=== PATIENT | male | born 1995 | race Caucasian/White ===

== ENCOUNTER 2016-11-15 20:43 | Emergency (ER) | payer OTHER ==
--- NOTE | 2016-11-15 21:29 | ED ORDER SUMMARY ---
..... Patient: JANN HAYDEN OrderSheet [facility] VisitID: [id number] [address] [place] [place] [address] 21y, M Registration Date/Time: 11/15/2016 ORDER SHEET Weight: 92.9 kg (stated) Allergies: NICKEL GENERAL ORDERS: Dress Wounds (21:25 11/15/2016 Shannan A.R.N.P.) (22:03 Tara Farris.N.) MEDICATION ORDERS: IV FLUIDS: ORDER SHEET NOTES: [Electronically signed by Jair Christianson R.N. (22:04 11/15/2016)] [Electronically signed by Antonieta DockeryRVanessaN.PVanessa (22:22 11/15/2016)] [Electronically locked/signed by Jair Christianson R.N. (22:04 11/15/2016)]
--- NOTE | 2016-11-15 21:29 | ED CLINICAL REPORT ---
Clinical Report - Physicians/Mid Levels [facility] [address] [place] [address] 11/15/2016 20:44 Patient: JANN HAYDEN Time Seen: 21:10; initial patient contact, initial documentation, patient care assumed. Arrived- By private vehicle. Historian- patient. HISTORY OF PRESENT ILLNESS Chief Complaint: Injury to the right hand. The injury happened just prior to arrival. Occurred at work. The patient sustained a laceration from a sharp edge (piece of metal while trimming a bolt). Patient is experiencing mild pain. Patient denies injury to the head or neck. No other injury. REVIEW OF SYSTEMS The patient sustained a laceration. No swelling, tingling, numbness or weakness. All systems otherwise negative, except as recorded above. PAST HISTORY See nurses notes. PROBLEMS: Anxiety Reaction. Depression. --21:37 Caden Kim R.N. The patient's dominant hand is the right. Tetanus immunization status is up-to-date. SOCIAL HISTORY Never smoker. Occasional alcohol use. No drug use. No recent travel. Is a local resident. FAMILY HISTORY No significant family medical history. ADDITIONAL NOTES The nursing notes have been reviewed with agreement regarding the chief complaint, HPI, ROS and patient medications and allergies. PHYSICAL EXAM Vital Signs: 11/15/2016 21:46 BP: 131/85. HR: 97. RR: 16. O2 saturation: 97%. Temp: 98.6 F. Pain level now: 0/10. Have been reviewed as normal and appear to be correct. Appearance: Alert. Oriented X3. No acute distress. Head: Head atraumatic. Eyes: Pupils equal, round and reactive to light. Eyes normal inspection. Respiratory: No respiratory distress. Skin: Skin warm and dry. Skin intact. Extremities: Hand injury present. Dorsal right hand: superficial 1.0 cm laceration of the distal aspect of the dorsal hand. Neurovascular intact distally. (1cm superficial lac with no active bleeding to top of handing near knuckle between digits 4 &5, no closure needed). No erythema, tenderness, swelling, abrasion or ecchymosis. No puncture wound, foreign body or deformity. No limitation of extension. No wrist injury. Hand and wrist exam otherwise negative. Extremities otherwise negative. Neuro, Vascular and Tendons: Vascular status intact. Sensation intact. Motor intact. Tendon function intact. Neuro: Oriented X 3. No motor deficit. No sensory deficit. Note: isolated injury to hand. PROGRESS AND PROCEDURES Course of Care: L&I paperwork completed. Patient counseled in person regarding the patient's stable condition and diagnosis. Differential Diagnosis: Other possible considerations: hand lac, fb, skin avulsion, tendon injury. Above considerations are based on history. Differential diagnosis was discussed with patient. Disposition: Discharged home in good and improved condition (21:29). Condition: good and stable. CLINICAL IMPRESSION Single superficial laceration to the right hand.Treatment of laceration not delayed. No infection or foreign body present. INSTRUCTIONS Protect wound and keep wound area clean. Soak in warm soapy water twice daily. Apply bacitracin twice daily. Follow-up: Follow up with your doctor in about three days as needed and for wound check. Call for an appointment. Summary of care provided to patient. Understanding of the discharge instructions verbalized by patient. (Electronically signed by Antonieta Dockery A.R.N.P. 11/15/2016 22:22)
--- NOTE | 2016-11-15 21:29 | ED ORDER SUMMARY ---
..... Patient: JANN HAYDEN OrderSheet [facility] VisitID: [id number] [address] [place] [address] 21y, M Registration Date/Time: 11/15/2016 ORDER SHEET Weight: 92.9 kg (stated) Allergies: NICKEL GENERAL ORDERS: Dress Wounds (21:25 11/15/2016 Shannan A.R.N.P.) (22:03 Tara Farris.N.) MEDICATION ORDERS: IV FLUIDS: ORDER SHEET NOTES: [Electronically signed by Jair Christianson R.N. (22:04 11/15/2016)] [Electronically signed by Antonieta DockeryRVanessaN.PVanessa (22:22 11/15/2016)] [Electronically locked/signed by Jair Christianson R.N. (22:04 11/15/2016)]
--- NOTE | 2016-11-15 22:22 | ED DISCHARGE INSTRUCTIONS ---
Patient: JANN HAYDEN General Instructions [facility] VisitID: [id number] [place] [address] 21y, M Registration Date/Time: 11/15/2016 Single superficial laceration to the right hand.Treatment of laceration not delayed. No infection or foreign body present. INSTRUCTIONS Protect wound and keep wound area clean. Soak in warm soapy water twice daily. Apply bacitracin twice daily. Follow-up: Follow up with your doctor in about three days as needed and for wound check. Call for an appointment. Summary of care provided to patient. Understanding of the discharge instructions verbalized by patient. ADDITIONAL INFORMATION Laceration (All Closures) Alaceration is a cut through the skin. This will usually require stitches (sutures) or srini if it is deep. Minor cuts may be treated with a surgical tape closure orskin glue. Home care The following guidelines will help you care for your laceration at home: Extremity, face, or trunk wounds Keep the wound clean and dry. If a bandage was applied and it becomes wet or dirty, replace it. Otherwise, leave it in place for the first 24 hours. If stitches or srini were used, clean the wound daily. After removing the bandage, wash the area with soap and water. Use a wet cotton swab to loosen and remove any blood or crust that forms. The doctor may prescribe an antibiotic cream or ointment to prevent infection. Do not stop taking this medication until you have finished the prescribed course or the doctor tells you to stop. The doctor may also prescribe medications for pain. Follow the doctors instructions for taking these medications. You may remove the bandage to shower as usual after the first 24 hours, but do not soak the area in water (no swimming) until the stitches or srini are removed. If surgical tape was used, keep the area clean and dry. If it becomes wet, blot it dry with a towel. If skin glue was used, do not scratch, rub, or pick at the adhesive film. Do not place tape directly over the film. Do not apply liquid, ointment, or creams to the wound while the film is in place. Do not clean the wound with peroxide and do not apply ointments. Avoid activities that cause heavy sweating until the film has fallen off. Protect the wound from prolonged exposure to sunlight or tanning lamps. You may shower as usual but do not soak the wound in water (no baths or swimming). The film will fall off by itself in 510 days. Scalp wounds During the first two days, you may carefully rinse your hair in the shower to remove blood, glass or dirt particles. After two days, you may shower and shampoo your hair normally. Do not soak your scalp in the tub or go swimming until the stitches or srini have been removed. Talk with your doctor before applying any antibiotic ointment to the wound. Mouth wounds Eat soft foods to reduce pain. If the cut is inside of your mouth, clean by rinsing after each meal and at bedtime with a mixture of equal parts water and hydrogen peroxide (do not swallow!). Or, you can use a cotton swab to directly apply hydrogen peroxide onto the cut. Mouth wounds can be painful when eating. You may use an [id number] local numbing solution for pain relief. If this is not available, you may use any numbing solution for teething babies. You may apply this directly to the sores with a cotton-tip swab or with your finger. Follow-up care Follow up with your health care provider. Most skin wounds heal within ten days. Mouth and facial wounds heal within five days. However, even with proper treatment, a wound infection may sometimes occur. Therefore, you should check the wound daily for signs of infection listed below. Stitches should be removed from the face within five days; stitches and srini should be removed from other parts of the body within 714 days. If dissolving stitches were used in the mouth, these will fall out or dissolve without the need for removal. If tape closures were used, remove them yourself if they have not fallen off after 7 days. Ifskin glue was used, the film will fall off by itself in 510 days. When to seek medical care Get prompt medical attention if any of these occur: Bleeding not controlled by direct pressure Signs of infection, including increasing pain in the wound, increasing wound redness or swelling, or pus coming from the wound Fever of 100.4F (38C) or higher, or as directed by your health care provider Stitches or srini come apart or fall out or surgical tape falls off before 7 days Wound edges re-open Laceration, Extremity (Sutures, Srini, Or Tape) A laceration is a cut through the skin. This will usually require stitches (sutures) or srini if it is deep. Minor cuts may be treated with surgical tape closures. Home care The following guidelines will help you care for your laceration at home: Keep the wound clean and dry. If a bandage was applied and it becomes wet or dirty, replace it. Otherwise, leave it in place for the first 24 hours, then change it once a day or as directed. If stitches or srini were used, clean the wound daily: After removing the bandage, wash the area with soap and water. Use a wet cotton swab to loosen and remove any blood or crust that forms. After cleaning, keep the wound clean and dry. Talk with your doctor before applying any antibiotic ointment to the wound. Reapply the bandage. You may remove the bandage to shower as usual after the first 24 hours, but do not soak the area in water (no swimming) until the stitches or srini are removed. If surgical tape closures were used, keep the area clean and dry. If it becomes wet, blot it dry with a towel. The doctor may prescribe an antibiotic cream or ointment to prevent infection. Do not stop taking this medication until you have finished the prescribed course or the doctor tells you to stop. The doctor may also prescribe medications for pain. Follow the doctors instructions for taking these medications. If you have chronic liver or kidney disease or ever had a stomach ulcer or GI bleeding, talk with your doctor before using these medicines. Follow-up care Follow up with your health care provider. Most skin wounds heal within ten days. However, an infection may sometimes occur despite proper treatment. Therefore, check the wound daily for the signs of infection listed below. Stitches and srini should be removed within 714 days. If surgical tape closures were used, you may remove them after 10 days, if they have not fallen off by then. Notify your doctor if you notice persistent numbness or weakness in the injured extremity. (Note:A radiologist will review any X-rays that were taken. We will notify you of any new findings that may affect your care.) When to seek medical care Get prompt medical attention if any of these occur: Increasing pain in the wound Redness, swelling, or pus coming from the wound Fever of 100.4F (38C) or higher, or as directed by your health care provider If stitches or srini come apart or fall out before your next appointment If the surgical tape closures fall off within seven days, or the wound edges re-open Bleeding not controlled by direct pressure You have been given the following additional information: Laceration, All Laceration, Extrem (Suture, Staple, Or Tape) (Electronically signed by Antonieta Dockery A.R.N.P. 11/15/2016 22:22)
--- NOTE | 2016-11-15 22:22 | ED NURSING NOTES ---
Clinical Report - Nurses [facility] [place] [address] 11/15/2016 20:44 Patient: JANN HAYDEN TRIAGE Triage time 21:30 Nov 15 2016. Acuity: LEVEL 5. Chief Complaint: Location of symptoms- (R hand lac, between 4th and 5th metacarpals.). SEPSIS SCREEN: Sepsis Screen. Negative (no infection suspected/documented). --21:34 Jair Christianson R.N. 21:46 11/15/16. BP: 131/85. HR: 97. RR: 16. O2 saturation: 97% on room air. Temp: 98.6 F. Pain level now: 0/10. --21:46 Jair Christianson R.N. Weight: 92.9 kg stated. Height/Length: 71 inches Per Patient. BMI: 28.6. --21:29 Jair Christianson R.N. Medications Omeprazole Oral. --21:32 Jair Christianson R.N. SEROquel Oral. --21:32 Jair Christianson R.N. Cymbalta Oral. --21:32 Jair Christianson R.N. Allergies NICKEL. --21:31 Jair Christianson R.N. History Arrived by private vehicle. Historian: patient. Primary physician (Dr. Andrew Farias @ [facility] This occurred today. 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 PAST MEDICAL HX: Tetanus status: up-to-date. Immunizations: up-to-date. SURGERY HX: ( R wrist ORIF). SOCIAL HX: Never smoker. Occasional alcohol use. No drug use. No infectious disease exposure. FALL RISK ASSESSMENT: Fall risk assessment completed. No fall risk identified. NUTRITIONAL RISK ASSESSMENT: The nutritional risk assessment revealed no deficiencies. FUNCTIONAL ASSESSMENT: Functional assessment: no impairments noted. LEARNING NEEDS ASSESSMENT: The learning needs assessment revealed no barriers. SKIN INTEGRITY ASSESSMENT: Skin integrity risk assessment completed. No skin integrity risk identified. --21:34 Jair Christianson R.N. PROBLEMS: Suicidal Ideation. Suicide Attempt. Anxiety Reaction. Depression. --21:33 Jair Christianson R.N. ADDITIONAL SURGERIES: R wrist fracture. --21:32 Jair Christianson R.N. Interventions ID and allergy band on patient. --21:34 Jair Christianson R.N. PHYSICAL ASSESSMENT GENERAL / NEURO / PSYCH: Oriented X 4. Alert. Appears in no acute distress. EXTREMITIES: Dorsal right hand: laceration with controlled bleeding. SKIN: Skin is warm and dry. --21:35 Jair Christianson R.N. NURSING PROGRESS NOTES The plan of care for this patient has been created. Reassurance given. Two patient identifiers checked. Call light placed in reach. Bed placed in lowest position. Patient ready for evaluation- COLLECTIONS PROFESSIONAL notified. ( Pt calm, resting in room, VSS, wounds dressed, ready for DC.). --21:35 Jair Christianson R.N. DISPOSITION / DISCHARGE Condition at departure: improved and stable. The goals identified in the patient's plan of care were met. No learning barriers present. Discharge instructions provided and reviewed with the patient. Reviewed referral to a primary care physician for followup. Patient verbalized understanding. Written instructions provided in Nepalese. The patient was discharged by the nurse practitioner. He was discharged home. He left the Emergency Department ambulatory and via private vehicle. Patient driving. ( Pt dc'd in stable condition, VSS, afebrile, verbalized POC.). --22:02 Jair Christianson R.N. 22:02 11/15/16. BP: 131/89. HR: 99. RR: 16. O2 saturation: 95% on room air. Temp: 98 F. Pain level now: 09/15. --22:03 Jair Christianson R.N. Departure time: 22:03 Nov 15 2016. --22:03 Jair Christianson R.N. Locked/Released at 11/15/2016 22:04 by Jair Christianson R.N.
--- NOTE | 2016-11-15 22:22 | ED MED RECONCILIATION SUMMARY ---
Patient: JANN HAYDEN Medication Reconciliation Report [facility] VisitID: [id number] [address] [place] [address] 21y, M Registration Date/Time: 11/15/2016 Weight: 92.9 kg Height/Length: 71 in. BMI: 28.6 ALLERGIES: NICKEL The patient's Home Medications are listed below: THE FOLLOWING MEDICATIONS NEED TO BE RECONCILED: Cymbalta Oral Omeprazole Oral SEROquel Oral The source(s) of the original Home Medication information: Not obtained. The following Medications were given to the patient in the Emergency Department: None. The following Medications were prescribed to the patient: None.
--- NOTE | 2016-11-15 22:22 | ED MAR SUMMARY ---
..... Medication Administration Record [facility] [address] [place], [place] [id number] Patient: JANN HAYDEN Visit ID: [id number] 21y, M Weight: 92.9 kg Height/Length: 71 in BMI: 28.6 ALLERGIES: NICKEL
--- NOTE | 2016-11-15 22:22 | ED MED RECONCILIATION SUMMARY ---
Patient: JANN HAYDEN Medication Reconciliation Report [facility] VisitID: [id number] [address] [place] [address] 21y, M Registration Date/Time: 11/15/2016 Weight: 92.9 kg Height/Length: 71 in. BMI: 28.6 ALLERGIES: NICKEL The patient's Home Medications are listed below: THE FOLLOWING MEDICATIONS NEED TO BE RECONCILED: Cymbalta Oral Omeprazole Oral SEROquel Oral The source(s) of the original Home Medication information: Not obtained. The following Medications were given to the patient in the Emergency Department: None. The following Medications were prescribed to the patient: None.
--- NOTE | 2016-11-15 22:22 | ED MAR SUMMARY ---
..... Medication Administration Record [facility] [address] [place], [place] [id number] Patient: JANN HAYDEN Visit ID: [id number] 21y, M Weight: 92.9 kg Height/Length: 71 in BMI: 28.6 ALLERGIES: NICKEL
--- NOTE | 2016-11-15 22:22 | ED NURSING NOTES ---
Clinical Report - Nurses [facility] [place] [address] 11/15/2016 20:44 Patient: JANN HAYDEN TRIAGE Triage time 21:30 Nov 15 2016. Acuity: LEVEL 5. Chief Complaint: Location of symptoms- (R hand lac, between 4th and 5th metacarpals.). SEPSIS SCREEN: Sepsis Screen. Negative (no infection suspected/documented). --21:34 Jair Christianson R.N. 21:46 11/15/16. BP: 131/85. HR: 97. RR: 16. O2 saturation: 97% on room air. Temp: 98.6 F. Pain level now: 0/10. --21:46 Jair Christianson R.N. Weight: 92.9 kg stated. Height/Length: 71 inches Per Patient. BMI: 28.6. --21:29 Jair Christianson R.N. Medications Omeprazole Oral. --21:32 Jair Christianson R.N. SEROquel Oral. --21:32 Jair Christianson R.N. Cymbalta Oral. --21:32 Jair Christianson R.N. Allergies NICKEL. --21:31 Jair Christianson R.N. History Arrived by private vehicle. Historian: patient. Primary physician (Dr. Andrew Farias @ [facility].). This occurred today. 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 PAST MEDICAL HX: Tetanus status: up-to-date. Immunizations: up-to-date. SURGERY HX: ( R wrist ORIF). SOCIAL HX: Never smoker. Occasional alcohol use. No drug use. No infectious disease exposure. FALL RISK ASSESSMENT: Fall risk assessment completed. No fall risk identified. NUTRITIONAL RISK ASSESSMENT: The nutritional risk assessment revealed no deficiencies. FUNCTIONAL ASSESSMENT: Functional assessment: no impairments noted. LEARNING NEEDS ASSESSMENT: The learning needs assessment revealed no barriers. SKIN INTEGRITY ASSESSMENT: Skin integrity risk assessment completed. No skin integrity risk identified. --21:34 Jair Christianson R.N. PROBLEMS: Suicidal Ideation. Suicide Attempt. Anxiety Reaction. Depression. --21:33 Jair Christianson R.N. ADDITIONAL SURGERIES: R wrist fracture. --21:32 Jair Christianson R.N. Interventions ID and allergy band on patient. --21:34 Jair Christianson R.N. PHYSICAL ASSESSMENT GENERAL / NEURO / PSYCH: Oriented X 4. Alert. Appears in no acute distress. EXTREMITIES: Dorsal right hand: laceration with controlled bleeding. SKIN: Skin is warm and dry. --21:35 Jair Christianson R.N. NURSING PROGRESS NOTES The plan of care for this patient has been created. Reassurance given. Two patient identifiers checked. Call light placed in reach. Bed placed in lowest position. Patient ready for evaluation- TRANSMISSION REBUILDER notified. ( Pt calm, resting in room, VSS, wounds dressed, ready for DC.). --21:35 Jair Christianson R.N. DISPOSITION / DISCHARGE Condition at departure: improved and stable. The goals identified in the patient's plan of care were met. No learning barriers present. Discharge instructions provided and reviewed with the patient. Reviewed referral to a primary care physician for followup. Patient verbalized understanding. Written instructions provided in Croatian. The patient was discharged by the nurse practitioner. He was discharged home. He left the Emergency Department ambulatory and via private vehicle. Patient driving. ( Pt dc'd in stable condition, VSS, afebrile, verbalized POC.). --22:02 Jair Christianson R.N. 22:02 11/15/16. BP: 131/89. HR: 99. RR: 16. O2 saturation: 95% on room air. Temp: 98 F. Pain level now: 09/15. --22:03 Jair Christianson R.N. Departure time: 22:03 Nov 15 2016. --22:03 Jair Christianson R.N. Locked/Released at 11/15/2016 22:04 by Jair Christianson R.N.
== END 2016-11-15 21:50 | disposition home or self-care (01) ==
LOC: ED SRH 20:43
DX: S61.411A Laceration without foreign body of right hand, initial encounter (principal); W26.8XXA Contact with other sharp object(s), not elsewhere classified, initial encounter; Y93.9 Activity, unspecified; Y92.9 Unspecified place or not applicable; Y99.0 Civilian activity done for income or pay; Z79.899 Other long term (current) drug therapy